=== PATIENT | female | born 1955 | race Two or more races ===

== ENCOUNTER 2021-11-03 07:28 | Inpatient (IN) | payer OTHER ==
[~2021-11-03] VITALS: Ht 157.5 cm; Wt 82.6 kg
[2021-11-03] MEDS ORDERED: LEVOTHYROXINE25 MCG PO (08:36)
[2021-11-03] MEDS ORDERED: SIMVAST PO (08:36)
[2021-11-06] MEDS ORDERED: SIMVASTATIN20 MG (13:37)
[2021-11-06] MEDS ORDERED: HYDROCHLOROTH12.5 MG (13:38)
[2021-11-06] MEDS ORDERED: BUPROPION HCL75 MG (13:38)
[2021-11-06] MEDS ORDERED: EZETIMIBE10 MG (13:38)
[2021-11-06] MEDS ORDERED: LOSARTAN POTASS25 MG (13:38)
[2021-11-06] MEDS ORDERED: MECLIZINE HCL12.5 MG (13:38)
[2021-11-06] MEDS ORDERED: IBANDRONATE SO150 MG (13:38)
[2021-11-06] MEDS ORDERED: METFORMIN HCL500 M4 (13:38)
== END 2021-11-07 12:11 | disposition home or self-care (01) | DRG 741 ==
LOC: ADM 08:15 → EDSTATUS 08:15 → O/R 11-05 05:20 → OB/GYN 11-05 05:20 → SURG 11-05 08:15 → OB/GYN 11-05 16:44 → SURG 11-05 19:15 → OB/GYN 11-07 12:11
PROVIDERS: ADMIT Obstetrics & Gynecology Gynecologic Oncology; ATTEND Obstetrics & Gynecology Gynecologic Oncology
PROC: 0UT70ZZ Resection of Bilateral Fallopian Tubes, Open Approach (ICD-10-PCS; 2021-11-05)
PROC: 0UT20ZZ Resection of Bilateral Ovaries, Open Approach (ICD-10-PCS; 2021-11-05)
PROC: 07BC0ZZ Excision of Pelvis Lymphatic, Open Approach (ICD-10-PCS; 2021-11-05)
PROC: 0DBW0ZZ Excision of Peritoneum, Open Approach (ICD-10-PCS; 2021-11-05)
PROC: 0UTG0ZZ Resection of Vagina, Open Approach (ICD-10-PCS; 2021-11-05)
PROC: 0DBU0ZZ Excision of Omentum, Open Approach (ICD-10-PCS; 2021-11-05)
PROC: 0UT90ZZ Resection of Uterus, Open Approach (ICD-10-PCS; principal; 2021-11-05 19:15)
DX: C54.1 Malignant neoplasm of endometrium (principal); N72 Inflammatory disease of cervix uteri; N83.311 Acquired atrophy of right ovary; Z20.822 Contact with and (suspected) exposure to COVID-19